=== PATIENT | male | born 1980 | race Caucasian/White ===

== ENCOUNTER 2023-11-20 20:44 | Emergency (ER) | payer SELFPAY ==
[~2023-11-20] VITALS: Ht 165.1 cm; Wt 63.5 kg
[2023-11-20 21:08] VITALS: BP 128/78; PULSE 72; RESP 14; TEMP 98.4; O2SAT 96
== END 2023-11-21 02:28 | disposition home or self-care (01) ==
LOC: ER 20:44
DX: S29.9XXA Unspecified injury of thorax, initial encounter (principal); V49.59XA Passenger injured in collision with other motor vehicles in traffic accident, initial encounter; Y93.89 Activity, other specified; Y92.89 Other specified places as the place of occurrence of the external cause; Y99.8 Other external cause status
CPT/HCPCS: 71045; 71250; 99284